=== PATIENT | male | born 1990 | race African-American/Black ===

== ENCOUNTER 2024-11-15 11:34 | Emergency (ER) | payer MEDICAID ==
[~2024-11-15] VITALS: Ht 175.3 cm; Wt 75.0 kg
[2024-11-15 11:41] VITALS: O2SAT 97
[2024-11-15] MEDS ORDERED: CEFTRIAXONE 1GM/50ML 50 ML IV ONE (12:30)
[2024-11-15] MEDS ORDERED: SODIUM CHLORIDE 0.9% (SEPSIS BOLUS) IV ONE (12:30)
[2024-11-15 12:52] VITALS: BP 137/86; PULSE 144; RESP 25; TEMP 37.5; O2SAT 99
[2024-11-15 13:10] LABS: BASOPHILS % 0.4 % (0.0-2.0); EOSINOPHILS % 0.3 % (0.0-5.0); HEMATOCRIT. 43.3 % (42.0-52.0); HEMOGLOBIN. 14.7 g/dL (14.0-18.0); LYMPHOCYTES % 22.3 % (20.0-50.0); MEAN PLATELET VOLUME 6.8 fl (7.4-10.4); MONOCYTES % 5.6 % (2.0-8.0); NEUTROPHILS % 71.4 % (40.0-76.0); PLATELET 217 x1000/uL (130-400); RED BLOOD CELL COUNT 4.71 mill/uL (4.7-6.1); RED CELL DISTRIBUTION WIDTH 13.0 % (11.6-14.6)
[2024-11-15 13:28] LABS: CREATININE 1.3 mg/dL (0.6-1.3); UREA NITROGEN BLOOD 14 mg/dL (9-23)
[2024-11-15 13:30] LABS: ASPARTATE AMINOTRANSFERASE 25 IU/L (<34); BILIRUBIN DIRECT 0.4 mg/dL (<=3.0); BILIRUBIN TOTAL 1.1 mg/dL (0.1-1.0); PROTEIN TOTAL 7.5 g/dL (6.0-8.3)
== END 2024-11-15 13:28 | disposition left against medical advice (07) ==
LOC: ER 11:34
DX: A41.9 Sepsis, unspecified organism (principal); Z55.6 Problems related to health literacy; Z65.3 Problems related to other legal circumstances
CPT/HCPCS: 80076; 80048; 80320; 83605; 85025; 87040; 36415; 84145; 93005; 99291; J7030; G0480

== ENCOUNTER 2024-11-15 14:40 | Emergency (ER) | payer MEDICAID ==
[~2024-11-15] VITALS: Ht 177.8 cm; Wt 79.0 kg
[2024-11-15] MEDS: SODIUM CHLORIDE 0.9% 1,000 ML IV STA (16:38)
[2024-11-15] MEDS: LORAZEPAM 2MG/ML UD SYRINGE IV SCH (16:38)
[2024-11-15] MEDS: DIPHENHYDRAMINE 50MG/ML VIAL IV ONE (16:38)
[2024-11-15 16:45] LABS: BASOPHILS % 0.6 % (0.0-2.0); EOSINOPHILS % 0.1 % (0.0-5.0); HEMATOCRIT. 42.2 % (42.0-52.0); HEMOGLOBIN. 14.4 g/dL (14.0-18.0); LYMPHOCYTES % 40.0 % (20.0-50.0); MEAN PLATELET VOLUME 6.9 fl (7.4-10.4); MONOCYTES % 8.0 % (2.0-8.0); NEUTROPHILS % 51.3 % (40.0-76.0); PLATELET 229 x1000/uL (130-400); RED BLOOD CELL COUNT 4.68 mill/uL (4.7-6.1); RED CELL DISTRIBUTION WIDTH 13.0 % (11.6-14.6)
[2024-11-15 17:03] LABS: CREATININE 1.4 mg/dL (0.6-1.3)
[2024-11-15] MEDS: HALOPERIDOL LACTATE 5MG/ML VIAL IM STA (17:03)
[2024-11-15 17:04] LABS: UREA NITROGEN BLOOD 16 mg/dL (9-23)
[2024-11-15 17:05] LABS: ASPARTATE AMINOTRANSFERASE 28 IU/L (<34)
[2024-11-15 17:06] LABS: BILIRUBIN DIRECT 0.4 mg/dL (<=3.0); BILIRUBIN TOTAL 1.1 mg/dL (0.1-1.0); PROTEIN TOTAL 7.3 g/dL (6.0-8.3)
[2024-11-16 09:43] LABS: *AMPHETAMINES SCREEN URINE PRESUMPTIVE POSITIVE (NEGATIVE)
[2024-11-16 09:44] LABS: *BARBITURATES SCREEN URINE NEGATIVE (NEGATIVE); *BENZODIAZEPINES SCREEN URINE NEGATIVE (NEGATIVE); *COCAINE SCREEN URINE PRESUMPTIVE POSITIVE (NEGATIVE); CANNABINOID URINE SCREEN NEGATIVE (NEGATIVE); ECSTASY MDMA SCREEN URINE CONF.TEST INDICATED (NEGATIVE); METHADONE URINE SCREEN NEGATIVE (NEGATIVE); OPIATES URINE SCREEN NEGATIVE (NEGATIVE); PHENCYCLIDINE URINE SCREEN NEGATIVE (NEGATIVE)
[2024-11-16 15:45] VITALS: O2SAT 98
[2024-11-16] MEDS: MIDAZOLAM HCL 2 MG/2 ML VIAL IM ONE (15:45)
[2024-11-16] MEDS: DIPHENHYDRAMINE 50MG/ML VIAL IM ONE (15:45)
[2024-11-16] MEDS: HALOPERIDOL LACTATE 5MG/ML VIAL IM ONE (15:45)
[2024-11-16] MEDS: OLANZAPINE 5MG TABLET ODT PO SCH (21:00)
[2024-11-17 06:00] VITALS: BP 104/72; PULSE 76; RESP 17; TEMP 36.7; O2SAT 100
== END 2024-11-17 09:30 | disposition left against medical advice (07) ==
LOC: ER 14:40
DX: F20.9 Schizophrenia, unspecified (principal); F15.90 Other stimulant use, unspecified, uncomplicated; F12.90 Cannabis use, unspecified, uncomplicated; Z20.822 Contact with and (suspected) exposure to COVID-19; Z79.899 Other long term (current) drug therapy
CPT/HCPCS: 80076; 80048; 80320; 83735; 85025; 36415; 93005; 96361; 96372 ×2; 96374; 96375; 99285; 87426; J1200 ×2; J1630 ×2; J2060; J7030; J2250; G0480